=== PATIENT | female | born 1980 ===

== ENCOUNTER → 2025-02-08 13:10 | Outpatient (BNV) | payer MEDICARE, MEDICAID, SELFPAY | PROVIDERS: Visit Provider Psychiatry & Neurology Neurology | DX: E11.41 Type 2 diabetes mellitus with diabetic mononeuropathy (principal) | CPT/HCPCS: 95886; 95913 ==

== ENCOUNTER 2025-02-08 13:17 | Outpatient (REF) | payer MEDICARE, MEDICAID, SELFPAY ==
--- NOTE | 2025-02-08 | EMG_ITS ---
Chief complaint: Numbness and pain lower extremities Reason for referral: Diabetic Mononeuropathy Referred by:?Dr Flores Procedure done: Bilateral lower extremities NCS/EMG Bilateral tibial and peroneal motor studies were performed bilateral superficial peroneal and sural sensory studies were performed bilateral median and lateral mixed plantars sensory studies were performed tibial H reflexes were obtained and EMG needle examination was performed. Right tibial motor amplitude was diminished with intact distal latency and conduction velocity. Bilateral sural amplitudes were diminished with intact conduction velocity. Mixed plantars sensory study amplitudes were diminished with intact conduction velocity. At rest of the study did not reveal any significant abnormality. Impression: This study revealed mild abnormality on the right side that may suggest chronic right lower lumbar radiculopathy. Imaging correlation is recommended. Otherwise, the study revealed mild axonal sensory neuropathy. MTDD
--- OUTSIDE RECORDS SUMMARY | 2025-02-08 17:13 | XMS_ITS | Clinical Summary ---
Author Organization [address] [place] [address] Dr Waggoner Address [address] [facility] [place] [address] Phone Care Team Providers Care Agronomy Research Manager Name Role Phone Tiffanie Yang MD Primary Care Provide r Allergies Active Allergy Reactions Criticality Noted Date Comments Diphenhydramine Hcl 05/07/2024 Diphenhydramine 09/20/2024 Via IV chest pain and SOB. Tolerates Zyrtec Medications albuterol HFA (PROAIR HFA ; PROVENTIL HFA ; VENTOLIN HFA) 90 mcg/actuation inhaler Inhale 2 puffs by mouth every 6 (six) hours if needed for wheezing. Active busPIRone (BUSPAR) 30 mg tablet Take 1 tablet (30 mg total) by mouth 2 (two) times a day. Active cetirizine (ZyrTEC) 10 mg chewable tablet Chew 1 tablet (10 mg total) 1 (one) time each day. Active cloNIDine (CATAPRES) 0.1 mg tablet Take 1 tablet (0.1 mg total) by mouth 2 (two) times a day. Active diclofenac (VOLTAREN) 1 % topical gel Apply topically 4 (four) times a day. Active QUEtiapine fumarate ER (SEROquel XR) 50 mg 24 hr tablet Take 1 tablet (50 mg total) by mouth at bedtime. Do not crush, chew, or split. Active omeprazole OTC (PriLOSEC OTC) 20 mg EC tablet Take 1 tablet (20 mg total) by mouth 1 (one) time each day. Do not crush, chew, or split. Active mirtazapine (REMERON ANNABELLE-TAB) 30 mg disintegrating tablet Dissolve 1 tablet (30 mg total) on top of the tongue at bedtime. Active fluticasone propionate (FLOVENT DISKUS) 50 mcg/actuation diskus inhaler Inhale 1 puff by mouth 2 (two) times a day. Rinse mouth with water after use to reduce aftertaste and incidence of candidiasis. Do not swallow. Active ammonium lactate (AmLactin) 12 % lotion Apply topically if needed for dry skin. Twice a day to skin 400 g 4 025 Active Active Problems Problem Noted Date Diagnosed Date Atypical lobular hyperplasia (ALH) of left breas t 05/07/2024 Breast lump 05/07/2024 Cough 05/07/2024 Depression 05/07/2024 Insomnia 05/07/2024 Iron deficiency anemia 05/07/2024 Leg pain 05/07/2024 Mild sleep apnea 05/07/2024 PTSD (post-traumatic stress disorder) 05/07/2024 Encounters Date Type Department Care Team Description 01/19/2025 3:30 PM EDT Office Visit [facility] [place] [id number] [phone] Larry Harrison DPM Tendinitis of left ankle (Primary Dx); Type II diabetes mellitus with peripheral circulatory disorder (CMS/[facility] V24, CMS/[facility] V28); Metatarsalgia of both feet; Verruca plantaris; Dermatophytosis of nail 12/16/2024 Telephone [facility] [place] [phone] [phone] Larry Harrison DPM 12/14/2024 2:45 PM EDT Office Visit [facility] [place] [id number] [phone] Larry Harrison DPM Diabetic mononeuropathy simplex (CMS/HCC V24, CMS/[facility] V28) (Primary Dx); Type II diabetes mellitus with peripheral circulatory disorder (CMS/[facility] V24, CMS/[facility] V28); Verruca plantaris; Metatarsalgia of both feet 11/16/2024 2:00 PM EDT Office Visit [facility] [place] [id number] [phone] Larry Harrison DPM Diabetic mononeuropathy simplex (CMS/HCC V24, CMS/HCC V28) (Primary Dx); Dermatophytosis of nail; Metatarsalgia of both feet; Verruca plantaris; Ingrowing nail from Last 3 Months Social History Tobacco Use Types Packs/Day Years Used Date Smoking Tobacco: Never Assessed Comments Unknown Sex and Gender Information Value Date Recorded Sex Assigned at Not on file Legal Sex Female 4:07 PM EDT Gender Identity Not on file Sexual Orientation Not on file Last Filed Vital Signs Vital Sign Reading Time Taken Comments Blood Pressure - - Pulse - - Temperature - - Respiratory Rate - - Oxygen Saturation - - Inhaled Oxygen Concentration - - Weight 76.2 kg (168 lb) 12/14/2024 2:55 PM EDT Height 165.1 cm (5' 5 ) 12/14/2024 2:55 PM EDT Body Mass Index 27.96 12/14/2024 2:55 PM EDT Plan of Treatment Upcoming Encounters Date Type Department Care Team (Late st Contact Info) Description 03/08/2025 3:15 PM EDT Office Visit [facility] - [place] [phone] [phone] Larry Harrison DPM [address] [phone] Health Maintenance Due Date Last Done Comments Breast Cancer Screening 1978 Diabetes: Annual GFR (Glomerular Filtration Rate) 1978 Diabetes: Annual Foot Exam 1988 Diabetes: Annual Retina Eye Exam 1988 Hepatitis B Vaccines (1 of 3 - 19+ 3-dose series) 1997 Pneumococcal Vaccine: Pediatrics (0 to 5 Years) and At-Risk Patients (6 to 49 Years) (1 of 2 - PCV) 1997 Cervical Cancer Screening: Pap Smear 11/04/1999 Cholesterol Screening (Lipid Panel) 03/12/2024 Colorectal Cancer Screening: Colonoscopy 03/12/2024 HIV Screening 03/12/2024 Hepatitis C Screening 03/12/2024 Medicare Annual Wellness Visit 03/12/2024 Social Influencers of Health Screening 03/12/2024 Diabetes: Annual Urine Albumin-Creatinine Ratio (uACR) 05/11/2024 Diabetes: Blood Sugar Control Test (HGBA1C) 05/11/2024 Depression Screening 05/26/2024 COVID-19 Vaccine ( season) 2025 04/04/2022, 06/20/2021, 09/22/2020, Additional history exists Influenza Vaccine (#1) 2025 , 03/11/2023, 03/06/2022, Additional history exists DTaP,Tdap,and Td Vaccines (3 - Td or Tdap) 11/17/2033 11/18/2023, 03/19/2012 HIB Vaccines Aged Out No longer eligi ble based on patient's age to complete this topic HPV Vaccines Aged Out No longer eligi ble based on patient's age to complete this topic Hepatitis A Vaccines Aged Out No long er eligible based on patient's age to complete this topic IPV Vaccines Aged Out No longer eligi ble based on patient's age to complete this topic MMR Vaccines Aged Out No longer eligi ble based on patient's age to complete this topic Meningococcal ACWY Vaccine Aged Out N o longer eligible based on patient's age to complete this topic Meningococcal B Vaccine Aged Out No l onger eligible based on patient's age to complete this topic RSV Immunization Patients Under 20 months Aged Out No longer eligible based on patient's age to complete this topic Varicella Vaccines Aged Out No longer eligible based on patient's age to complete this topic Insurance MEDICARE [place] - [place] Care Teams Agronomy Research Manager Relationship Specialty Start Date End Date Tiffanie Yang MD [address] [place] [phone] PCP - General 03/02/24
== END 2025-02-08 13:18 | disposition home or self-care (01) ==
LOC: HO.NEURO 13:17
PROVIDERS: Visit Provider Psychiatry & Neurology Neurology
DX: E11.41 Type 2 diabetes mellitus with diabetic mononeuropathy (principal); E11.69 Type 2 diabetes mellitus with other specified complication; R20.0 Anesthesia of skin; M79.605 Pain in left leg; M79.604 Pain in right leg; R94.131 Abnormal electromyogram [EMG]
CPT/HCPCS: 95886; 95913